=== PATIENT | female | born 1945 | race Caucasian/White ===

== ENCOUNTER 2018-08-12 11:32 | Emergency (ER) | payer MEDICARE ==
[~2018-08-12] VITALS: Ht 152.4 cm; Wt 55.5 kg
[2018-08-12 11:39] VITALS: Ht 152.4 cm; Wt 55.5 kg
[2018-08-12] MEDS ORDERED: ZANAFLEX4 MG (12:56)
[2018-08-12] MEDS ORDERED: DICLOFENAC SODI50 MG PO (12:56)
[2018-08-12] MEDS ORDERED: METOPROLOL TART25 MG PO (12:56)
[2018-08-12] MEDS ORDERED: AMOXICILLIN875 MG PO (12:57)
[2018-08-12] MEDS ORDERED: FLUTICASONE PRO16 GM (12:57)
[2018-08-12] MEDS ORDERED: NEURONTIN 300300 MG PO (15:08)
[2018-08-12] MEDS ORDERED: HYDROCODON-ACE1 EAC7 PO (15:08)
[2018-08-12] MEDS ORDERED: ROBAXIN500 MG PO (15:08)
[2018-08-12 16:27] VITALS: BP 178/88
== END 2018-08-12 16:27 | disposition home or self-care (01) ==
LOC: D.ER 11:32
DX: S29.012A Strain of muscle and tendon of back wall of thorax, initial encounter (principal); X58.XXXA Exposure to other specified factors, initial encounter; Y93.89 Activity, other specified; Y92.89 Other specified places as the place of occurrence of the external cause; M62.838 Other muscle spasm; I10 Essential (primary) hypertension

== ENCOUNTER → 2018-08-28 15:49 | Outpatient (CLI) | payer MEDICARE, OTHER ==
[2018-08-12 11:39] VITALS: BMI 23.8
[~2018-08-28 15:49] MED LIST: AMOXICILLIN875 MG PO; DICLOFENAC SODI50 MG PO; FLUTICASONE PRO16 GM; HYDROCODON-ACE1 EAC7 PO; METOPROLOL TART25 MG PO; NEURONTIN 300300 MG PO; ROBAXIN500 MG PO; ZANAFLEX4 MG
== END | disposition home or self-care (01) ==
LOC: D.MRI 15:49
DX: M54.12 Radiculopathy, cervical region (principal)

== ENCOUNTER 2019-04-03 05:25 | Day surgery (SDC) | payer MEDICARE, OTHER ==
[2019-04-02 10:01] LABS: HEMATOCRIT 40.1 % (36.0-48.0); HEMOGLOBIN 13.5 g/dL (12-16); MCH 30.2 pg (26.0-34.0); MCHC 33.7 g/dL (31.0-37.0); MCV 89.7 fL (80.0-100.0); MEAN PLATELET VOLUME 9.6 fL (7.4-10.4); RBC 4.47 10x6/uL (4.00-5.40); RDW 14.3 % (11.5-14.5); WBC 8.4 10x3/uL (4.8-10.8)
[2019-04-03] VITALS (20 sets, daily range): BP systolic 95–155; BP diastolic 53–76; Ht 154.9 cm; Wt 65.0 kg
[~2019-04-03] VITALS: Ht 154.9 cm; Wt 65.0 kg
[~2019-04-03 05:25] MED LIST changes: +ALENDRONAT70 MG/75 M PO
--- NOTE | 2019-04-03 10:37 | OP ---
PATIENT NAME: YANE ADAMS MEDICAL RECORD: [id number] :41 LOCATION:[facility] D.[id number] ADMISSION DATE:04/03/19 SURGEON: NAT HOLMAN MD DATE OF OPERATION: 04/03/2019 PREOPERATIVE DIAGNOSES: Osteophyte formation and disc herniation at C4-C5 and C5-C6 bilaterally with cervical radiculopathy at C5 and C6 bilaterally. PROCEDURE: Anterior cervical discectomy and fusion at C4-C5 and C5-C6 with removal of osteophytes at C4-C5 and C5-C6. PEEK interbody cages with bone stem cell allograft. Separate anterior cervical plate and screws at C4-C5 and C5-C6. SURGEON: Nat Holman MD DESCRIPTION AND TECHNIQUE: After induction of general endotracheal anesthesia, the patient was positioned supine on the operating table. Neck was prepped and draped in usual sterile fashion. Fluoroscopic x-ray and freer localized the C4-C5 interspace. A transverse skin incision was carried out from midline to the sternocleidomastoid muscle after infiltration of 1:100,000 epinephrine and 1% lidocaine. The platysma was divided with a #15 blade. Using blunt and sharp dissection with Metzenbaum scissors, I proceeded in an avascular plane medial to the carotid sheath. The C4-C5 and C5-C6 interspaces were identified with fluoroscopic x-ray and a spinal needle. Osteophytes were removed anteriorly with Adson rongeurs. The longus colli muscles were elevated from bodies of C4, C5, and C6. A self-retaining retractor was placed deep to the longus colli muscles. Upperglade pins were placed in the bodies of C4, C5, and C6. Each disc space at 4-5 and 5-6 was incised with a #11 blade under distraction. The disc material was removed with pituitary rongeurs and curettes. Under microscopic illumination, the osteophytes were drilled away posteriorly with Midas-Addi drill. The posterior longitudinal ligament was removed with Cloward rongeurs. Next, a PEEK interbody cage was placed in each interspace under distraction. Prior to this, it was filled with Elise bone allograft. Next, a 28-mm Uniplate from [employer] was used to span the C4-C5 and C5-C6 disc spaces. Locking cams were tightened down over the screw heads. Good position of the hardware was confirmed with fluoroscopic x-ray. Meticulous hemostasis was maintained throughout the wound. Wound was irrigated with copious amounts of Ancef irrigant solution. The platysma and subdermal layer closed with interrupted 3-0 Vicryl suture. The skin was reapproximated with Steri-Strips and benzoin. A sterile dressing was applied to the wound. The patient was awakened in good condition and taken to recovery. All counts were reported as correct. Estimated blood loss was minimal. TRANSINT:[id number] Voice Confirmation ID: [id number] DOCUMENT ID: [id number] NAT HOLMAN MD at 1037 CC: [id number] DICTATION DATE: 04/03/19916 CARBON CUTTER: 04/03/19 09 [facility] IN [place] [id number] [place] [id number]
--- NOTE | 2019-04-03 10:40 | NUR ---
REPORT RECIEVED PT HOOKED TO ICU MONITORS. PT SLIGHTLY DROWSEY FROM ANESTHESIA. PT HOOKED TO ICU MONITORS. DAMARIS EDEN NOTED. PUPIL PERRLA. LEFT ANTERIOR NECK INCISION NOTED C/D/I AND WELL APPROXIMATED. [employer] SYMMETRICAL AND EQUAL. VSS AT THIS TIME. CALL LIGHT IN REACH. WILL CONT POC.
--- NOTE | 2019-04-03 12:50 | NUR ---
VSS. PT RESTING WITH HER EYES. NO CHANGE IN PT'S CONDITION.
--- NOTE | 2019-04-03 15:15 | NUR ---
PATIENT IS RESTING. NO DISTRESS NOTED AT THIS TIME. PATIENT DENIES NEEDS. WILL CONTINUE TO MONITOR. REASSESMENT COMPLETED.
--- NOTE | 2019-04-03 17:15 | NUR ---
PATIENT RESTING. FAMILY AT BEDSIDE. TRAY PROVIDED. AFREBRILE. VSS. PATIENT IS EASY TO AROUSE. WILL CONTINUE TO MONITOR
--- NOTE | 2019-04-03 19:00 | NUR ---
BEDSIDE REPORT AND SHIFT ASSESSMENT COMPLETE. PT DENIES ANY NEEDS. VSS, NO SIGNS OF ACUTE DISTRESS NOTED. WILL CONTINUE TO MONITOR.
--- NOTE | 2019-04-03 23:00 | NUR ---
REASSESSMENT COMPLETE. C/O HOLLOWAY, PRN MEDS GIVEN. VSS, NO SIGNS OF ACUTE DISTRESS. WILL CONTINUE TO MONITOR.
[2019-04-04] VITALS (13 sets, daily range): BP systolic 98–133; BP diastolic 58–87
--- NOTE | 2019-04-04 01:00 | NUR ---
PT SLEEPING. VSS, NO SIGNS OF ACUTE DISTRESS NOTED. WILL CONTINUE TO MONITOR.
--- NOTE | 2019-04-04 03:00 | NUR ---
REASSESSMENT COMPLETE. PT VOMITED CLEAR LIQUID. DENIES FEELING NAUSEATED. WILL CONTINUE TO MONITOR.
--- NOTE | 2019-04-04 05:18 | NUR ---
ASSISTED PT TO BEDSIDE COMMODE. VSS, NO SIGNS OF ACUTE DISTRESS AT THIS TIME. DENIES ANY NEEDS. WILL CONTINUE TO MONITOR.
--- NOTE | 2019-04-04 07:15 | NUR ---
SHIFT REPORT RECEIVED. PT ALERT AND ORIENTED. INCISION TO LEFT SIDE OF NECK. TRACHEA MIDLINE. IV TO LEFT HAND. WEARING O2 AT 3L. PT HAS A SCOPALAMINE PATCH ON. DENIES NAUSEA AT THIS TIME. HEAD TO TOE ASSESSMENT DONE. NO NEEDS AT THIS TIME.
--- NOTE | 2019-04-04 09:15 | NUR ---
NORCO-5 (2 TABS) GIVEN TO PT FOR PAIN. STATES THE BACK OF HER NECK IS HURTING. WILL CONTINUE TO MONITOR. VSS.
--- NOTE | 2019-04-04 11:30 | NUR ---
PT HAD CHG BATH. ABLE TO DO MOST HERSELF. PUT ON HER OWN CLOTHES AND RESTING QUIETLY IN BED NOW.
[2019-04-04] MEDS ORDERED: HYDROCODON-ACE1 EA10 PO (14:07)
== END 2019-04-04 15:05 | disposition home or self-care (01) ==
LOC: OBSVTIME → D.OPS 05:25 → D.PAN 07:30 → D.OPS 07:30 → D.ICU 09:22 → D.OPS 09:29 → D.ICU 09:30 → D.OPS 09:30 → D.ICU 09:30 → OBSVTIME 09:31 → D.OPS 12:00 → D.ICU 04-04 15:05 → D.OPS 04-04 15:05
PROVIDERS: Anesthesiology; ATTEND Neurological Surgery
DX: M25.78 Osteophyte, vertebrae (principal); M50.121 Cervical disc disorder at C4-C5 level with radiculopathy; Z01.812 Encounter for preprocedural laboratory examination